=== PATIENT | female | born 1955 | race Caucasian/White ===

== ENCOUNTER → 2017-02-28 | Outpatient (CLI) | payer BC | LOC: FIMAGING 11:22 | PROVIDERS: ATTEND Neurological Surgery | DX: M54.5 Low back pain (principal); M51.36 Other intervertebral disc degeneration, lumbar region; M25.551 Pain in right hip; M24.151 Other articular cartilage disorders, right hip; M76.01 Gluteal tendinitis, right hip ==

== ENCOUNTER 2017-10-05 05:38 | Inpatient (IN) | payer BC ==
[2017-10-05] MEDS ORDERED: ceFAZolin 2 GM/SWFI 2 GM/20 ML SYR IVP ONE (05:45)
[2017-10-05] MEDS ORDERED: GABAPENTIN 300 MG CAP PO ONE (05:45)
[2017-10-05] MEDS ORDERED: ACETAMINOPHEN 500 MG TAB PO ONE (05:45)
[2017-10-05] MEDS ORDERED: LR 1,000 ML IV ONE (05:46)
[2017-10-05] MEDS ORDERED: LIDOCAINE 1% 2 ML INJ ID PRN (05:46)
[2017-10-05] MEDS ORDERED: BUPIVACAINE 0.25% 30 ML SDV ONE (06:29)
[2017-10-05] MEDS ORDERED: CHLORHEXIDINE GLUC HIBICLENS 118 ML BTL TP ONE (06:29)
[2017-10-05] MEDS ORDERED: BACITRACIN 50,000 UNITS/10 ML SYR IRR ONE (06:30)
[2017-10-05] MEDS ORDERED: THROMBIN (BOVINE) 5,000 UNIT VIAL TP ONE (06:30)
--- NOTE | 2017-10-05 06:41 | PDHPUP ---
History & Physical Update H&P update statement: This history and physical update is based on an assessment of the patient which was completed after admission or registration (within 24 hours), but prior to the surgery/procedure. H&P update: H&P reviewed & patient examined, no change in patient's condition since H&P completed
--- NOTE | 2017-10-05 07:12 | PDANEPAE ---
ANE History of Present Illness L4-S1 TLIF ANE Past Medical History - Cardiovascular History Hx Hypertension: Yes Hx Arrhythmias: No Hx Chest Pain: No Hx Coronary Artery / Peripheral Vascular Disease: No Hx CHF / Valvular Disease: No Hx Palpitations: No - Pulmonary History Hx COPD: No Hx Asthma/Reactive Airway Disease: No Hx Recent Upper Respiratory Infection: No Hx Oxygen in Use at Home: No Hx Sleep Apnea: No Sleep Apnea Screening Result - Last Documented: Negative - Neurologic History Hx Cerebrovascular Accident: No Hx Seizures: No Hx Dementia: No - Endocrine History Hx Diabetes: No - Renal History Hx Renal Disorders: No - Liver History Hx Hepatic Disorders: No - Neurological & Psychiatric Hx Hx Neurological and Psychiatric Disorders: Yes Neurological / Psychiatric History Comment: ANXIETY & DEPRESSION - Cancer History Hx Cancer: Yes Cancer History Comment: PRE CANCEROUS LESIONS REMOVED - Congenital Disorder History Hx Congenital Disorders: No - GI History GERD: moderate Hx Gastrointestinal Disorders: No Gastrointestinal History Comment: ACID REFLUX - Other Health History Other Health History: EASY BRUISING. STEROID EPID INJS - Chronic Pain History Chronic Pain: Yes (BACK & R LEG W/NUMBNESS) - Surgical History Prior Surgeries: HYSTERECTOMY ZAIN OOPHER 2002. R CATARACT & R RETINAL DETACHMENT 5 YRS AGO. L FOOT ANE Review of Systems Review of Systems: - Exercise capacity METS (RN): 4 METS ANE Patient History - Allergies Allergies/Adverse Reactions: Penicillins Allergy (Verified 09/01/17 11:03) Sulfa (Sulfonamide Antibiotics) Allergy (Verified 09/01/17 11:03) tetanus toxoid, adsorbed Allergy (Verified 09/01/17 11:03) - Home Medications Home Medications: Cholecalciferol (Vitamin D3) [Vitamin D3] 5,000 unit PO DAILY 08/25/17 [Last Taken 09/28/17] Gabapentin [Neurontin 300 MG (*)] 300 mg PO Q3 PRN 08/25/17 [Last Taken 04:30] Hydrocodone/Acetaminophen [[place] 5/325 (*)] 1 - 2 tab PO Q6H PRN 08/25/17 [Last Taken 10/04/17 22:00] Lidocaine 5% [Lidoderm 5% Patch (*)] 1 patch TP DAILY PRN 08/25/17 [Last Taken 10/04/17] Naproxen Sodium [Aleve 220 MG (*)] 440 mg PO DAILY 08/25/17 [Last Taken 09/28/17 ] Ranitidine HCl [Zantac] 150 mg PO DAILY 08/25/17 [Last Taken 10/05/17 04:30] Venlafaxine Xr [Effexor Xr] 150 mg PO DAILY 08/25/17 [Last Taken Unknown] Vit C/Dl-E AC/Lut/Copper/Znox [Preservision Softgel] 1 each PO DAILY 08/25/17 [ Last Taken 09/28/17] Zolpidem Tartrate [Ambien 5MG (*)] 5 mg PO HS PRN 08/25/17 [Last Taken 10/04/17 22:00] - NPO status NPO Since - Liquids (Date): 10/04/17 NPO Since - Liquids (Time): 23:30 NPO Since - Solids (Date): 10/04/17 NPO Since - Solids (Time): 20:00 - Anes Hx Anes Hx: no prior problems - Smoking Hx Smoking Status: Former smoker (stopped 10 years ago) Marijuana use: No - Alcohol Use Alcohol Use: Other (2 drinks twice a week) - Family Anes Hx Family Anes Hx: none Family Hx Anesthesia Complications: NEG ANE Labs/Vital Signs - Vital Signs Blood Pressure: 109/71 Heart Rate: 64 Respiratory Rate: 16 O2 Sat (%): 93 Height: 161.29 cm Weight: 70.307 kg ANE Physical Exam - Airway Neck exam: FROM Mouth exam: normal dental/mouth exam - Pulmonary Pulmonary: clear to auscultation (upper front bonding) - Cardiovascular Cardiovascular: regular rate and rhythym - ASA Status ASA Status: II ANE Anesthesia Plan Anesthesia Plan: general endotracheal anesthesia
[2017-10-05] MEDS ORDERED: MIDAZOLAM 2 MG/2 ML VIAL IVP ONE (07:15)
[2017-10-05] MEDS ORDERED: fentaNYL 250 MCG/5 ML INJ ONE (07:20)
[2017-10-05] MEDS ORDERED: KETAMINE 100 MG/10 ML SYR ONE (07:20)
[2017-10-05] MEDS ORDERED: ROCURONIUM 50 MG/5 ML VIAL ONE (07:21)
[2017-10-05] MEDS ORDERED: DEXAMETHASONE 4 MG/ML VIAL ONE (07:21)
[2017-10-05] MEDS ORDERED: LIDOCAINE 5% 1 EA PATCH TD PRN (07:21)
[2017-10-05] MEDS ORDERED: PROPOFOL/EMULSION 500 MG/50 ML BOTTLE IV ONE ×2 (07:21→09:51)
[2017-10-05] MEDS ORDERED: ONDANSETRON DISINTEGRATING 4 MG TAB PO PRN (07:22)
[2017-10-05] MEDS ORDERED: LACTULOSE 20 GM/30 ML UDCUP PO PRN (07:22)
[2017-10-05] MEDS ORDERED: HYDROmorphONE/DILAUDID 6 MG/30 ML PCA IV PRN (07:22)
[2017-10-05] MEDS ORDERED: POLYETHYLENE GLYCOL 3350 17 GM PKT PO PRN (07:22)
[2017-10-05] MEDS ORDERED: MAGNESIUM HYDROXIDE 30 ML UDCUP PO PRN (07:22)
[2017-10-05] MEDS ORDERED: NALOXONE HCL 0.4 MG/ML INJ IVP PRN ×2 (07:22→12:50)
[2017-10-05] MEDS ORDERED: BISACODYL 10 MG SUPP PR PRN (07:22)
[2017-10-05] MEDS ORDERED: diphenhydrAMINE 25 MG CAP PO PRN (07:22)
[2017-10-05] MEDS ORDERED: ONDANSETRON 4 MG/2 ML VIAL IVP PRN (07:22)
[2017-10-05] MEDS ORDERED: NS W/ 20 KCl/L 1,000 ML IV SCH (07:30)
[2017-10-05] MEDS ORDERED: NON-FORMULARY NEW DRUG (Ranitidine Hcl [Zantac] 150 MG) PO SCH (09:00)
[2017-10-05] MEDS ORDERED: NON-FORMULARY NEW DRUG (Vit C/Dl-E Ac/Lut/Copper/Znox [Preservision Softgel] 1 EACH) PO SCH (09:00)
[2017-10-05] MEDS ORDERED: PATCH REMOVAL 1 EA PATCH TD PRN (11:28)
[2017-10-05] MEDS ORDERED: HYDROmorphone HCL/NS/PF 0.4 MG/2 ML SYR IVP PRN (11:30)
[2017-10-05] MEDS ORDERED: fentaNYL 100 MCG/2 ML INJ ONE ×2 (11:43→12:51)
[2017-10-05] MEDS ORDERED: ONDANSETRON 4 MG/2 ML VIAL ONE (12:18)
[2017-10-05] MEDS ORDERED: HYDROmorphONE/DILAUDID 1 MG/ML INJ ONE (12:51)
[2017-10-05] MEDS: HYDROmorphONE/DILAUDID 1 MG/ML INJ IVP PRN ×3 (12:52→13:57)
[2017-10-05] MEDS: fentaNYL 100 MCG/2 ML INJ IVP PRN ×2 (12:52→13:01)
--- NOTE | 2017-10-05 13:05 | SOAPPROG ---
SOAP Progress Note Assessment/Plan: Post Op Visit: S: Awake and alert. NAD. Pt with expected lower back pain O: AFVSS/PERRLA/EOMI no droop CN 2-12 grossly intact +lt touch 5/5 BUE/BLE = CDI MARIO in place A/P: 62 yo female that is s/p TLIF L4/5 and L5/S1 -orders in place -brace when out of bed -PT/OT when able -call with any questions or concerns -pt with expected lower back pain -pt seen by Dr Arita 10/05/17 13:02 Objective: Vital Signs Temp Pulse Resp BP Pulse Ox 36.8 C 64 16 109/71 93 10/05/17 06:04 10/05/17 08:31 10/05/17 08:31 10/05/17 08:31 10/05/17 08:31 ICD10 Worksheet Patient Problems: Problems Problem Status Onset Arthrodesis status Acute Lumbar radicular pain Acute Lumbar stenosis Acute - ICD10 Problem Qualifiers (1) Lumbar stenosis (2) Lumbar radicular pain (3) Arthrodesis status
[2017-10-05] MEDS ORDERED: DIAZEPAM 10 MG/2 ML SYR ONE (13:29)
[2017-10-05] MEDS ORDERED: DIAZEPAM 10 MG/2 ML SYR IVP ONE (13:30)
[2017-10-05] MEDS: PRESERVISION AREDS2 FORMULA EYE VIT 1 EACH PO SCH (13:47)
[2017-10-05] MEDS: FAMOTIDINE 20 MG TAB PO SCH ×2 (13:48→19:40)
[2017-10-05] MEDS: VENLAFAXINE XR 150 MG CAP PO SCH (13:49)
[2017-10-05] MEDS: SENNOSIDES/DOCUSATE SODIUM TAB PO SCH ×2 (13:49→19:40)
--- NOTE | 2017-10-05 13:54 | GOP ---
[f rep st] OPERATIVE REPORT DATE OF OPERATION: 10/05/2017 SURGEON: Nena Arita MD VEHICLE OPERATOR: Celestine Ortega PA-C PREOPERATIVE DIAGNOSIS: 1. Lumbar spondylolisthesis of L4-5 and L5-S1. 2. Facet arthropathy of L4-5 and L5-S1. 3. Bilateral lumbosacral radiculopathy. 4. Lumbar degenerative disk disease. POSTOPERATIVE DIAGNOSIS: PROCEDURE PERFORMED: FINDINGS: ESTIMATED BLOOD LOSS: 150 cc INDICATIONS: Jennifer is a 62-year-old with bilateral lumbosacral radiculopathy, worse on the right le g than on the left, but she also has a long history of left-sided radicular pain. She also had left hip pain and was evaluated by Ortho, but no cause of left hip pain was found. MRI demonstrated spond ylolisthesis at L4-5 and L5-S1 with severe facet arthropathy and bilateral foraminal stenosis. There was evidence, as well, of some exuberant synovium at both levels causing some lateral recess stenosi s. The patient failed conservative measures and wanted to have surgery. I suggested a 2-level fusio n. The concept of adjacent segment degeneration and the possible need for future surgery was discuss ed. She knew that in time she may require surgery at L3-4 and L2-3, above these levels, but I did no t know any other reliable way to correct her problem without including instrumented fusion in this ca se. She knew there was a risk of continued symptoms, despite surgery, and risk of infection, pseudoa rthrosis, and screw and hardware malposition. She did want to proceed. DESCRIPTION OF PROCEDURE: The patient was taken to the operating room and placed in the supine posit ion. General anesthesia was begun and she was flipped prone onto the Jim table. Care was taken to pad all points of contact. She was sterilely prepped and draped and the O-arm was introduced to t he field. We made a 6 cm incision at the L4-5 and L5-S1 interspace. Localizing x-rays were taken an d we exposed the transverse processes of L4, L5, and the sacrum. The L4-5 and L5-S1 facet joints wer e remarkably arthritic. There was a large synovial cyst coming out of these and they did appear inco mpetent. There were floating pieces of bone surrounding the facet consistent with what we had seen o n the MRI, but actually even worse than what we had seen on the MRI. We denuded the hypertrophic fac ets at L4-5 and L5-S1. We preserved the L3-4 facet. We attached the Stealth reference frame. We pe rformed an O-arm spin. Using frameless Stealth stereotaxy, we placed pedicle screws bilaterally at L 4, L5, and the sacrum, which all stimulated at great levels. We then performed another O-arm spin an d all the screws were in excellent position and the sacral screws were bicortical. Her bone quality was fine. We took a 55 mm lisa on the left and a 60 mm lisa on the right. It was a titanium lisa. We increased the lordosis on the left-sided lisa. I was happy with the degree of lordosis on the right-s ided lisa. We distracted slightly between L4-5 and L5-S1. We checked an x-ray and we had reduced the spondylolisthesis almost completely. There was only about 1 mm or so left at L5-S1. There was exce llent lumbar lordosis. We removed all of the soft tissue of the bone at L4-5 sacrum. We harvested t he L5 spinous process for autologous grafting purposes. We drilled bilateral laminas at L5-S1, fernie sted this for autologous grafting purposes, and we performed a right hemilaminectomy of L4 and harves wero this for autologous grafting purposes. We removed the facet joint complex on the right at L4-5 a nd on the left at L5-S1 and harvested this bone for autologous grafting purposes. We then, under the microscope, opened the ligamentum flavum and, interestingly, at L5-S1 the ligamentum flavum and hype rtrophic facets were completely adherent to the dura, both centrally and working our way laterally. This required a change in plan and on the left we completely removed the left L5-S1 facet. We went o ut to the SAP of the sacrum and thinned the SAP and entered the neural foramen directly. We then wor ked our way medially. We also released the rostral lip of the sacrum itself fracturing the rostral l ip of the sacral lamina upward out of the spinal canal. We peeled some of this off, but left some li gamentum flavum stuck to the dura as it really could not be from the dura. We did perform a lateral recess decompression, likewise on the right hand side except we simply harvested the pars i nterarticularis of L5 and worked our way down along the L5 root into the foramen for the exiting L5 r oot, and then down into the lateral recess for the traversing S1 root. I was very happy with both th e lateral recess and the foraminotomy decompressions at L5-S1, but we did leave ligamentum flavum amie ck to the dura and on the right hand side we left a small piece of L5 lamina and bone actually stuck to the dura, but it was no longer compressive as it was a floating piece of bone on the right hand si de at L4-5. This was a very straight forward decompression. We decompressed the right lateral reces s as well as the exiting L4 nerve root. The right-sided L4 nerve root and the left-sided L5 nerve ro ot were easily identified and, under the microscope, we removed the L4-5 disk and the cartilaginous e ndplates. We roughened the subchondral bone to create arthrodesis on the left side. At L5-S1 we the n removed the disk and the cartilaginous endplates, then we roughened the subchondral bone for arthro desis. This disk space was more collapsed and degenerative. Under fluoroscopic guidance, we then in serted trial spacers in the L4-5 and L5-S1 disk space and chose a 7 x 23 mm device for L5-S1 and an 8 x 28 mm device for L4-5. They were packed with bone morphogenic protein and we placed bone autograf t into the disk space. We inserted both devices, expanded them according to company specification, a nd I was happy with their deployment. We used a grand total of 2 mg of BMP in the disk, 1 mg in each , and we used 4 mg total for the entire surgery. We decorticated all of the posterolateral bone bila terally at L4-5 and the sacrum, and placed bone autograft and BMP posterolaterally bilaterally from L 4 to the sacrum. All of the screws had been torqued to company specification, I placed a subfascial drain, and then closed the incision in multiple layers using Vicryl sutures. A running PDS was place d in the skin itself. There were no complications. COMPLICATIONS: None. INSTRUMENTATION USED: 1. [employer] 5.5 mm system. 2. 7 x 23 mm expandable Elevate cage at L5-S1. 3. 8 x 28 mm expandable cage at L4-5. /[id number]/MODL
[2017-10-05] MEDS ORDERED: GABAPENTIN 300 MG CAP PO SCH (14:00)
[2017-10-05] MEDS: ACETAMINOPHEN 500 MG TAB PO SCH ×3 (14:33→23:46)
[2017-10-05] MEDS: METHOCARBAMOL 750 MG TAB PO PRN ×2 (14:34→23:46)
[2017-10-05] MEDS: oxyCODONE IR 5 MG TAB PO PRN ×3 (14:45→19:47)
[2017-10-05] MEDS: ceFAZolin 2 GM/DEXTROSE 100 ML IV SCH ×2 (16:57→23:46)
[2017-10-05] MEDS: GABAPENTIN 300 MG CAP PO PRN (23:46)
[2017-10-05] MEDS: ZOLPIDEM TARTRATE 5 MG TAB PO PRN (23:47)
[2017-10-06] MEDS: oxyCODONE IR 5 MG TAB PO PRN (04:26)
[2017-10-06] MEDS: GABAPENTIN 300 MG CAP PO PRN (04:26)
[2017-10-06 04:47] LABS: % IMMATURE GRANULYOCYTES 0.4 % (0.0-1.1); ABSOLUTE IMMATURE GRANULOCYTES 0.03 10^3/uL (0.00-0.10); ADD DIFF? NO; ADD MORPH? NO; ADD SCAN? NO; ATYPICAL LYMPHOCYTE FLAG 0 (0-99); FRAGMENT RBC FLAG 0 (0-99); HEMATOCRIT 28.2 % (38.0-47.0); HEMOGLOBIN 9.6 g/dL (12.6-16.3); LEFT SHIFT FLG 0 (0-99); LIPEMIA HEMOLYSIS FLAG 90 (0-99); MEAN CELL HEMOGLOBIN 35.6 pg (27.9-34.1); MEAN CELL VOLUME 104.4 fL (81.5-99.8); MEAN PLATELET VOLUME 9.1 fL (8.7-11.7); PLATELET CLUMPS FLAG 0 (0-99); PLATELET COUNT 195 10^3/uL (150-400)
[2017-10-06 05:10] LABS: ANION GAP 8 mEq/L (8-16); CALCIUM 8.4 mg/dL (8.5-10.4); CARBON DIOXIDE 24 mEq/l (22-31); CHLORIDE 111 mEq/L (97-110); CREATININE 0.8 mg/dL (0.6-1.0); GLOMERULAR FILTRATION RATE > 60; GLUCOSE 85 mg/dL (70-100); POTASSIUM 4.2 mEq/L (3.5-5.2); SODIUM 143 mEq/L (134-144)
[2017-10-06] MEDS: ACETAMINOPHEN 500 MG TAB PO SCH ×3 (05:52→23:23)
[2017-10-06] MEDS: METHOCARBAMOL 750 MG TAB PO PRN ×4 (05:54→17:29)
[2017-10-06] MEDS ORDERED: GABAPENTIN 300 MG CAP PO PRN (08:25)
--- NOTE | 2017-10-06 08:29 | NEUSURGPN ---
Date of Surgery: 10/05/17 Post Op Day: 1 Assessment/Plan: Assessment: 62 yo female that is s/p TLIF L4/5 and L5/S1 POD #1 Plan: -pt with expected lower back pain, no BLE complaints at this time -Pt is on gabapentin 800 mg TID-this was adjusted this am -PT/OT -orders in place -brace when out of bed -post op xrays pending -MARIO in place -call with any questions or concerns -pt with expected lower back pain -pt seen by Dr Arita 10/05/17 13:02 Subjective: Awake and alert. NAD. Eating/drinking and voiding. No f/c/n/v/d. No edmondson/neck/ chest/abd or gu complaints. Objective: AFVSS/PERRLA/EOMI no droop CN 2-12 grossly intact +lt touch 5/5 BUE/BLE = CDI MARIO in place Neuro Check Frequency: per routine Urinary Catheter in Place: No - Physician Discussed Patient with Dr.: Juan J Patient Seen by : Juan J Neurosurgery Physical Exam - Vitals, I&O, Labs I and O 10/05/17 10/06/17 10/07/17 05:59 05:59 05:59 Intake Total 2750 Output Total 3910 Balance -1160 Weight 70.307 kg Intake: Oral (ml) 600 IV Intake (ml) 2000 IV Infused (ml) 150 NS W/ 20 KCl/L 1,000 ml @ 150 75 mls/hr IV CONT JESICA Rx #:[id number] Output: Urine (ml) 3340 Catheter 3340 Estimated Blood Loss (ml) 150 MARIO Drain Output (ml) 420 Back Jim Sorenson 420 Other: Intake Quantity Yes Sufficient Number of Voids Catheter 1 Vital Signs Temp Pulse Resp BP Pulse Ox 36.6 C 79 18 84/50 L 98 10/06/17 04:00 10/06/17 04:00 10/06/17 04:00 10/06/17 04:00 10/06/17 04:00 Laboratory Results 10/06/17 04:22 10/06/17 04:22 ICD10 Worksheet Patient Problems: Problems Problem Status Onset Arthrodesis status Acute Lumbar radicular pain Acute Lumbar stenosis Acute - ICD10 Problem Qualifiers (1) Lumbar stenosis (2) Lumbar radicular pain (3) Arthrodesis status
[2017-10-06] MEDS: PRESERVISION AREDS2 FORMULA EYE VIT 1 EACH PO SCH (09:05)
[2017-10-06] MEDS: SENNOSIDES/DOCUSATE SODIUM TAB PO SCH ×2 (09:06→20:59)
[2017-10-06] MEDS: VENLAFAXINE XR 150 MG CAP PO SCH (09:07)
[2017-10-06] MEDS: FAMOTIDINE 20 MG TAB PO SCH ×2 (09:07→20:59)
[2017-10-06] MEDS: HYDROCODONE/APAP 5/325 TAB PO PRN ×4 (09:08→23:30)
[2017-10-06] MEDS: GABAPENTIN 400 MG CAP PO PRN ×3 (09:50→20:58)
--- NOTE | 2017-10-06 10:31 | ASMTCMCOM ---
CM Note CM Note Notes: 10/06/2017 Case Management Note Reviewed chart. No case management d/c needs identified d/t pt age, activilty levels prior to admission and marital status. PT is recommending home with outpatient rehab. Case Management d/c poc: Home independent with family support when medically stable with follow up as directed. Date Signed: 10/06/2017 10:31 AM Electronically Signed By:Jennifer Cook RN
[2017-10-06] MEDS: ZOLPIDEM TARTRATE 5 MG TAB PO PRN (23:35)
[2017-10-07] MEDS: ACETAMINOPHEN 500 MG TAB PO SCH ×3 (05:30→22:08)
[2017-10-07] MEDS ORDERED: NS 500 ML IV ONE (08:21)
[2017-10-07] MEDS: METHOCARBAMOL 750 MG TAB PO PRN ×4 (08:50→22:03)
[2017-10-07] MEDS: FAMOTIDINE 20 MG TAB PO SCH ×2 (08:50→22:03)
[2017-10-07] MEDS: SENNOSIDES/DOCUSATE SODIUM TAB PO SCH ×2 (08:50→22:03)
[2017-10-07] MEDS: VENLAFAXINE XR 150 MG CAP PO SCH (08:50)
[2017-10-07] MEDS: GABAPENTIN 400 MG CAP PO PRN ×3 (08:50→22:03)
[2017-10-07] MEDS: PRESERVISION AREDS2 FORMULA EYE VIT 1 EACH PO SCH (08:51)
[2017-10-07] MEDS: HYDROCODONE/APAP 5/325 TAB PO PRN (08:56)
--- NOTE | 2017-10-07 10:02 | NEUSURGPN ---
Assessment/Plan: Assessment: 62 yo female that is s/p TLIF L4/5 and L5/S1 POD #2 Plan: -pt with expected lower back pain, feeling light headed this am. 500cc bolus of NS given. H:H pending -Optimize pain management while minimizing sedation. -PT/OT -LSO when OOB when out of bed -post op xrays pending -call with any questions or concerns -DVT prophx: TEDs, SCDs, Lovenox -Discussed with Dr Arita Subjective: low back pain, worse with movement Objective: NAD A&Ox3 MAEx4 5/5 and equal in BUE and BLE. Incision c/d/i - Physician Discussed Patient with : Juan J Neurosurgery Physical Exam - Vitals, I&O, Labs I and O 10/06/17 10/07/17 10/08/17 05:59 05:59 05:59 Intake Total 2750 500 Output Total 3910 1450 Balance -1160 -950 Weight 70.307 kg Intake: Oral (ml) 600 500 IV Intake (ml) 2000 IV Infused (ml) 150 NS W/ 20 KCl/L 1,000 ml @ 150 75 mls/hr IV CONT JESICA Rx #:[id number] Output: Urine (ml) 3340 1450 Catheter 3340 Toilet 1450 Estimated Blood Loss (ml) 150 MARIO Drain Output (ml) 420 Back Jim Sorenson 420 Other: Intake Quantity Yes Yes Sufficient Number of Voids Catheter 1 Vital Signs Temp Pulse Resp BP Pulse Ox 37.0 C 90 18 63/46 L 92 10/07/17 07:35 10/07/17 07:35 10/07/17 07:35 10/07/17 07:35 10/07/17 07:35 Laboratory Results 10/06/17 04:22 10/06/17 04:22 ICD10 Worksheet Patient Problems: Problems Problem Status Onset Arthrodesis status Acute Lumbar radicular pain Acute Lumbar stenosis Acute
[2017-10-07 10:23] LABS: HEMATOCRIT 27.9 % (38.0-47.0); HEMOGLOBIN 9.6 g/dL (12.6-16.3)
[2017-10-07] MEDS: HYDROCODONE/APAP 10/325 TAB PO PRN ×3 (11:43→22:03)
[2017-10-07] MEDS: ZOLPIDEM TARTRATE 5 MG TAB PO PRN (22:04)
[2017-10-08 00:24] VITALS: RESP 16
[2017-10-08] MEDS: METHOCARBAMOL 750 MG TAB PO PRN ×2 (04:25→10:43)
[2017-10-08] MEDS: GABAPENTIN 400 MG CAP PO PRN (04:25)
[2017-10-08] MEDS: HYDROCODONE/APAP 10/325 TAB PO PRN ×2 (04:25→10:43)
[2017-10-08] MEDS: ACETAMINOPHEN 500 MG TAB PO SCH (05:01)
--- NOTE | 2017-10-08 06:59 | NEUSURGPN ---
Date of Surgery: 10/05/17 Post Op Day: 3 Assessment/Plan: Assessment: 62 yo female that is s/p TLIF L4/5 and L5/S1 POD #3 Plan: -pt with expected lower back pain, feeling light headed yesterday and now feels better. SBP better. 500cc bolus of NS given yesterday -H:H-07/27 which is stable -Optimize pain management while minimizing sedation-better overall at this point -PT/OT-CPM -LSO when OOB when out of bed -post op xrays look good -call with any questions or concerns -DVT prophx: TEDs, SCDs-walking well in hallway -Discussed with Dr Arita -plan for dc later today Subjective: Awake and alert. NAD. Legs feel good. Pt with expected lower back pain. No f /c/n/v/d. No edmondson/neck/chest/abd or gu complaints. Eating/drinking and voiding. Passing gas Objective: AAO x 3, PERRLA/EOMI no droop CN 2-12 grossly intact +lt touch 5/5 BUE/BLE = CDI Neuro Check Frequency: per routine Urinary Catheter in Place: No - Physician Discussed Patient with : Juan J Neurosurgery Physical Exam - Vitals, I&O, Labs I and O 10/07/17 10/08/17 10/09/17 05:59 05:59 05:59 Intake Total 500 Output Total 1450 Balance -950 Intake: Oral (ml) 500 Output: Urine (ml) 1450 Toilet 1450 Other: Intake Quantity Yes Yes Sufficient Number of Stools Toilet 0 Vital Signs Temp Pulse Resp BP Pulse Ox 37.0 C 96 16 103/56 L 91 L 10/08/17 00:00 10/08/17 00:00 10/08/17 00:00 10/08/17 00:00 10/08/17 00:00 Laboratory Results 10/07/17 09:40 10/06/17 04:22 ICD10 Worksheet Patient Problems: Problems Problem Status Onset Arthrodesis status Acute Lumbar radicular pain Acute Lumbar stenosis Acute - ICD10 Problem Qualifiers (1) Lumbar stenosis (2) Lumbar radicular pain (3) Arthrodesis status
[2017-10-08 08:03] VITALS: BP 102/61; PULSE 89; TEMP 98; O2SAT 97
[2017-10-08] MEDS ORDERED: ENOXAPARIN 40 MG/0.4 ML SYR SC SCH (09:00)
[2017-10-08] MEDS: VENLAFAXINE XR 150 MG CAP PO SCH (09:48)
[2017-10-08] MEDS: SENNOSIDES/DOCUSATE SODIUM TAB PO SCH ×2 (09:48→10:43)
[2017-10-08] MEDS: PRESERVISION AREDS2 FORMULA EYE VIT 1 EACH PO SCH (09:48)
[2017-10-08] MEDS: FAMOTIDINE 20 MG TAB PO SCH (09:48)
--- NOTE | 2017-10-08 11:59 | ASDISCHSUM ---
Discharge Information Plan Status:Home with No Needs Medically Cleared to Leave: Discharge Date:10/08/2017 11:38 AM CM D/C Disposition:Home, Routine, Self-Care ADT D/C Disposition:Home, Routine, Self-Care Projected Discharge Date:10/08/2017 11:38 AM Transportation at D/C:Family Discharge Delay Reason: Follow-Up Date:10/08/2017 11:38 AM Discharge Slot: Final Diagnosis: Placement Information Patient Contact Information Contact Name:CONNOR Relationship: Address: City:[place] Alternate Phone: [facility]/Zip Code:[place] [address] Email: Financial Information Financial Class:HMO and PPO Plans Primary Plan Desc: OUT OF STATE PPO Primary Plan Number:[id number] Secondary Plan Desc: Secondary Plan Number: Assessment Information BC CM Progress Note CM Note CM Note Notes: 10/06/2017 Case Management Note Reviewed chart. No case management d/c needs identified d/t pt age, activilty levels prior to admission and marital status. PT is recommending home with outpatient rehab. Case Management d/c poc: Home independent with family support when medically stable with follow up as directed. Date Signed: 10/06/2017 10:31 AM Electronically Signed By:Jennifer Cook RN Intervention Information
--- NOTE | 2017-10-10 14:37 | ASMTCMCOM ---
CM Note CM Note Notes: Spoke with patient's , Dr. Rosales, regarding the need for home care. states patient discharged home on Tuesday, 10/08, and is not doing well at this time. requesting Home Care PT. Spoke with Carlota at [facility] re: referral. Carlota to contact Dr. Jefry Arita's office to obtain order, aware in agreement. Date Signed: 10/10/2017 02:36 PM Electronically Signed By:Pretty Gibson RN
== END 2017-10-08 11:38 | disposition home or self-care (01) | DRG 455 ==
LOC: F3N 05:38
PROVIDERS: ADMIT Neurological Surgery; ATTEND Neurological Surgery
DX: M43.16 Spondylolisthesis, lumbar region (principal); M43.17 Spondylolisthesis, lumbosacral region; M47.27 Other spondylosis with radiculopathy, lumbosacral region; M51.16 Intervertebral disc disorders with radiculopathy, lumbar region; M71.38 Other bursal cyst, other site; I10 Essential (primary) hypertension; K21.9 Gastro-esophageal reflux disease without esophagitis; F41.9 Anxiety disorder, unspecified; F32.9 Major depressive disorder, single episode, unspecified
CPT/HCPCS: 97116-GP; 97161-GP; 97165-GO; 97530-GP; 97535-GO; C1713; J0171; J0690; J1100; J1170; J1650; J2250; J2405; J2704; J3010

== ENCOUNTER → 2018-12-05 | Outpatient (CLI) | payer BC | LOC: FIMAGING 09:36 | PROVIDERS: ATTEND Physician Assistant | DX: Z12.31 Encounter for screening mammogram for malignant neoplasm of breast (principal); M89.9 Disorder of bone, unspecified ==

== ENCOUNTER → 2018-12-12 | Outpatient (CLI) | payer BC ==
[~2018-12-12] MED LIST: GADOXETATE DISODIUM 2.5 MMOL/10 ML VIAL IV ONE
== END ==
LOC: FIMAGING 09:45
PROVIDERS: ATTEND Physician Assistant
DX: Z13.820 Encounter for screening for osteoporosis (principal); M85.89 Other specified disorders of bone density and structure, multiple sites; Z78.0 Asymptomatic menopausal state
CPT/HCPCS: A9581